=== PATIENT | female | born 1985 | race Caucasian/White ===

== ENCOUNTER 2018-02-04 18:49 | Inpatient (IN) | payer OTHER ==
[~2018-02-04] VITALS: Ht 185.4 cm; Wt 89.1 kg
[2018-02-04 18:53] VITALS: BP 114/78
[2018-02-04 19:12] LABS: BILIRUBIN NEGATIVE (NEGATIVE); BLOOD 3+ (NEGATIVE); CLARITY CLOUDY (CLEAR); COLOR YELLOW (YELLOW); GLUCOSE NEGATIVE (NEGATIVE); KETONE NEGATIVE (NEGATIVE); LEUKO ESTERASE TRACE (NEGATIVE); NITRITE NEGATIVE (NEGATIVE); PH 5.5 (5.0-9.0); SPECIFIC GRAVITY 1.025 (1.005-1.030); UROBILINOGEN 0.2 E.U./dl (0.2-1.0)
[2018-02-04 19:22] VITALS: BP 118/73
[2018-02-04 19:24] LABS: BACTERIA 1+; EPITHELIAL CELLS TNTC; RBC TNTC rbc/hpf (0-2)
[2018-02-04 19:28] LABS: URINE AMPHETAMINES < 1000 (1000ng/ml); URINE BARBITURATES < 200 (200ng/ml); URINE BENZODIAZEPINES < 200 (200ng/ml); URINE CANNABINOIDS (THC) < 50 (50ng/ml); URINE COCAINE > 300 (300ng/ml); URINE METHADONE < 300 (300ng/ml); URINE OPIATES > 300 (300ng/ml)
[2018-02-04 19:29] LABS: URINE PHENCYCLIDINE < 25 (25ng/ml)
[2018-02-04 19:30] LABS: BASO # 0.1 10*3/uL (0.0-0.1); BASO % 0.7 % (0.0-1.0); EOS # 0.2 10*3/uL (0.0-0.4); HEMATOCRIT 39.3 % (37.0-47.0); HEMOGLOBIN 12.6 g/dl (12.0-16.0); LYMPH # 2.3 10*3/uL (1.3-4.4); LYMPH % 25.7 % (27.0-41.0); MEAN CELL VOLUME 89.7 fl (81.0-99.0); MEAN CORPUSCULAR HGB 28.8 pg (27.0-31.0); MEAN CORPUSCULAR HGB CONC 32.1 g/dl (33.0-37.0); MEAN PLATELET VOLUME 9.1 fl (9.6-12.3); MONO # 0.6 10*3/uL (0.1-1.0); MONO % 6.8 % (3.0-9.0); NEUT # 5.7 10*3/uL (2.3-7.9); NEUT % 64.6 % (47.0-73.0); PLATELET COUNT AUTOMATED 248 10*3/uL (130-400); RED BLOOD COUNT 4.38 10*6/uL (4.10-5.10); RED CELL DISTRI WIDTH 13.2 % (0-14.5); WHITE BLOOD COUNT 8.8 10*3/uL (4.8-10.8)
[2018-02-04 19:44] LABS: ALBUMIN 3.6 gm/dl (3.1-4.5); ALKALINE PHOSPHATASE 64 U/L (45-117); BUN 11 mg/dl (7-24); CHLORIDE 102 mmol/L (98-107); CREATININE 0.83 mg/dL (0.55-1.02); POTASSIUM 3.7 mmol/L (3.5-5.1); SGOT/AST 91 IU/L (3-35); SGPT/ALT 106 U/L (12-78); SODIUM 137 mmol/L (136-145); TOTAL PROTEIN 7.7 gm/dL (6.4-8.2)
[2018-02-04 19:45] LABS: ACETAMINOPHEN (TYLENOL) < 2.0 ug/ml (10-30)
[2018-02-04 20:15] VITALS: BP 108/68
[2018-02-05] VITALS: BP 101/70
[2018-02-05 04:00] VITALS: BP 112/73
[2018-02-05 08:00] VITALS: BP 123/77
[2018-02-05 12:00] VITALS: BP 116/65
[2018-02-05] MEDS ORDERED: MOXIFLOXACIN3 ML OS (14:25)
[2018-02-05] MEDS ORDERED: AKTOB 5 ML5 ML OS (14:26)
[2018-02-05] MEDS ORDERED: ATROPINE SULFATE2 M2 OS (14:27)
[2018-02-05] MEDS ORDERED: Econopred Plus 15 ML OS (14:28)
[2018-02-05 16:00] VITALS: BP 124/68
[2018-02-05 20:00] VITALS: BP 126/75
[2018-02-06] VITALS: BP 126/75
[2018-02-06 08:00] VITALS: BP 134/86
[2018-02-06 16:00] VITALS: BP 124/82
[2018-02-06 20:00] VITALS: BP 125/77
[2018-02-07] VITALS: BP 114/73
[2018-02-07 06:43] LABS: BASO # 0.1 10*3/uL (0.0-0.1); BASO % 0.8 % (0.0-1.0); EOS # 0.2 10*3/uL (0.0-0.4); EOS % 3.3 % (1.0-4.0); LYMPH # 2.1 10*3/uL (1.3-4.4); LYMPH % 33.4 % (27.0-41.0); MEAN CELL VOLUME 87.9 fl (81.0-99.0); MEAN CORPUSCULAR HGB 28.6 pg (27.0-31.0); MEAN CORPUSCULAR HGB CONC 32.6 g/dl (33.0-37.0); MEAN PLATELET VOLUME 9.7 fl (9.6-12.3); MONO # 0.4 10*3/uL (0.1-1.0); MONO % 5.5 % (3.0-9.0); NEUT # 3.6 10*3/uL (2.3-7.9); NEUT % 56.8 % (47.0-73.0); PLATELET COUNT AUTOMATED 229 10*3/uL (130-400); RED BLOOD COUNT 4.89 10*6/uL (4.10-5.10); RED CELL DISTRI WIDTH 13.7 % (0-14.5); WHITE BLOOD COUNT 6.3 10*3/uL (4.8-10.8)
[2018-02-07 06:59] LABS: CREATININE 0.81 mg/dL (0.55-1.02)
[2018-02-07 08:00] VITALS: BP 108/77
[2018-02-07 16:00] VITALS: BP 110/61
[2018-02-08 09:07] VITALS: BP 127/70
[2018-02-08 16:27] VITALS: BP 106/74
[2018-02-08 20:00] VITALS: BP 111/65
[2018-02-09] VITALS: BP 104/68
[2018-02-09 08:42] VITALS: BP 101/72
[2018-02-09 12:00] VITALS: BP 110/74
[2018-02-09 16:00] VITALS: BP 102/62
[2018-02-09 20:00] VITALS: BP 113/72
[2018-02-10] VITALS: BP 113/73
[2018-02-10 06:46] LABS: BASO % 0.7 % (0.0-1.0); EOS # 0.3 10*3/uL (0.0-0.4); EOS % 4.6 % (1.0-4.0); HEMATOCRIT 44.2 % (37.0-47.0); HEMOGLOBIN 14.2 g/dl (12.0-16.0); LYMPH # 2.5 10*3/uL (1.3-4.4); LYMPH % 40.7 % (27.0-41.0); MEAN CELL VOLUME 89.7 fl (81.0-99.0); MEAN CORPUSCULAR HGB 28.8 pg (27.0-31.0); MEAN CORPUSCULAR HGB CONC 32.1 g/dl (33.0-37.0); MEAN PLATELET VOLUME 9.4 fl (9.6-12.3); MONO # 0.3 10*3/uL (0.1-1.0); MONO % 5.3 % (3.0-9.0); NEUT # 2.9 10*3/uL (2.3-7.9); NEUT % 48.5 % (47.0-73.0); PLATELET COUNT AUTOMATED 175 10*3/uL (130-400); RED BLOOD COUNT 4.93 10*6/uL (4.10-5.10); RED CELL DISTRI WIDTH 13.3 % (0-14.5)
[2018-02-10 07:07] LABS: CREATININE 0.88 mg/dL (0.55-1.02)
[2018-02-10 08:00] VITALS: BP 129/83
[2018-02-10] MEDS ORDERED: ZOFRAN 4 MG ED2 TAB PO (08:21)
[2018-02-10] MEDS ORDERED: ATARAX,VISTARIL50 MG PO (08:21)
== END 2018-02-10 12:12 | disposition home or self-care (01) | DRG 897 ==
LOC: ED 18:49 → 5E 19:23 → EDHOLD 19:23 → 5E 19:36
PROVIDERS: Internal Medicine; Nurse Practitioner Family
DX: F11.23 Opioid dependence with withdrawal (principal); A59.9 Trichomoniasis, unspecified; B19.20 Unspecified viral hepatitis C without hepatic coma; F14.10 Cocaine abuse, uncomplicated; F41.9 Anxiety disorder, unspecified; L02.414 Cutaneous abscess of left upper limb; N39.0 Urinary tract infection, site not specified; H16.002 Unspecified corneal ulcer, left eye; R74.0 Nonspecific elevation of levels of transaminase and lactic acid dehydrogenase [LDH]; Z72.0 Tobacco use; Z71.6 Tobacco abuse counseling; Z80.1 Family history of malignant neoplasm of trachea, bronchus and lung